=== PATIENT | female | born 1970 | race Caucasian/White ===

== ENCOUNTER 2023-01-13 19:18 | Emergency (ER) | payer BC ==
[~2023-01-13] VITALS: Ht 165.1 cm; Wt 80.0 kg
[~2023-01-13 19:18] MED LIST: NO HOME MEDS
[2023-01-13 19:37] VITALS: BP 181/59
[2023-01-13] MEDS ORDERED: proparacaine 0.5% ophthalmic drops 15ml RIGHTEYE ONE (22:15)
[2023-01-13] MEDS ORDERED: NEO/5DRO7 RIGHTEYE ×2 (22:47→23:29)
[2023-01-13] MEDS ORDERED: neomycin/polymyxn B/dexameth ophth suspension 5ml RIGHTEYE STA (23:15)
[2023-01-13] MEDS ORDERED: neomy/polymyx B/dexamethasone ophth ointment 3.5gm RIGHTEYE ONE (23:39)
== END 2023-01-14 00:09 | disposition home or self-care (01) ==
LOC: ER 19:19
DX: S05.01XA Injury of conjunctiva and corneal abrasion without foreign body, right eye, initial encounter (principal); Z90.49 Acquired absence of other specified parts of digestive tract; Z98.890 Other specified postprocedural states; Z88.1 Allergy status to other antibiotic agents; Z88.2 Allergy status to sulfonamides; Z79.899 Other long term (current) drug therapy; X58.XXXA Exposure to other specified factors, initial encounter; Y93.89 Activity, other specified; Y92.89 Other specified places as the place of occurrence of the external cause; Y99.8 Other external cause status
CPT/HCPCS: 99283

== ENCOUNTER 2023-05-24 14:18 | Emergency (ER) | payer BC ==
[~2023-05-24] VITALS: Ht 165.1 cm; Wt 90.0 kg
[~2023-05-24 14:18] MED LIST changes: +NEO/5DRO7 RIGHTEYE
[2023-05-24 17:06] LABS: BASOPHILS % (AUTO) 0.9 % (0-1); HEMATOCRIT 42.4 % (35.0-45.0); LYMPHOCYTES # (AUTO) 1.6 X10'3 (1.1-4.8); LYMPHOCYTES % (AUTO) 35.6 % (21-51); MEAN CORPUSCULAR HEMOGLOBIN 28.4 PG (27.0-31.0); MEAN CORPUSCULAR HGB CONC 32.9 g/dL (33.0-36.5); MEAN CORPUSCULAR VOLUME 86.2 FL (78-98); MEAN PLATELET VOLUME 7.3 FL (7.4-10.4); MONOCYTES # (AUTO) 0.3 X10'3 (0-0.9); MONOCYTES % (AUTO) 7.2 % (2-12); NEUTROPHILS # (AUTO) 2.4 X10'3 (1.8-7.7); NEUTROPHILS % (AUTO) 55.3 % (42-75); PLATELET COUNT 236 X10'3 (140-440); RED BLOOD COUNT 4.91 X10'6 (4.20-5.60); RED CELL DISTRIBUTION WIDTH 13.9 % (11.5-14.5); WHITE BLOOD COUNT 4.4 X10'3 (4.5-11.0)
[2023-05-24 17:11] LABS: ALANINE AMINOTRANSFERASE 18 U/L (12-78); ALBUMIN 3.9 G/DL (3.4-5.0); ALBUMIN/GLOBULIN RATIO 1.2 (1.1-1.5); ALKALINE PHOSPHATASE 69 IU/L (46-116); ANION GAP 6 (8-16); ASPARTATE AMINO TRANSFERASE 14 U/L (10-37); BILIRUBIN,TOTAL 0.4 MG/DL (0.1-1.0); BLOOD UREA NITROGEN 13 MG/DL (7-18); BUN/CREATININE RATIO 13.8 (10.0-20.0); CALCIUM 9.2 MG/DL (8.5-10.1); CHLORIDE 103 MMOL/L (99-107); CREATININE 0.94 MG/DL (0.40-0.90); GLUCOSE 102 MG/DL (70-104); LIPASE 290 U/L (73-393); POTASSIUM 3.8 MMOL/L (3.5-5.1); SODIUM 140 MMOL/L (135-145); TOTAL CARBON DIOXIDE 31.3 MMOL/L (24-32); TOTAL PROTEIN 7.1 G/DL (6.4-8.2); eGFR 63 ML/MIN
[2023-05-24] MEDS ORDERED: naproxen 500mg tablet PO ONE (17:30)
[2023-05-24 17:44] LABS: URINE HCG NEGATIVE (NEG)
[2023-05-24 17:47] LABS: CLARITY,URINE SLIGHTLY CLOUDY (Clear); COLOR,URINE STRAW (Yellow); GLUCOSE, URINE NEGATIVE (Neg); KETONES,URINE NEGATIVE (Neg); LEUKOCYTE ESTERASE ,URINE NEGATIVE (Neg); NITRITES, URINE NEGATIVE (Neg); OCCULT BLOOD,URINE LARGE (Neg); PROTEIN,URINE NEGATIVE (Neg); UROBILINOGEN,URINE 0.2 E.U/dL (0.2-1.0)
[2023-05-24 17:56] LABS: UA COLLECTION TYPE CLN CATCH MIDSTREAM
[2023-05-24 17:57] LABS: WBC,URINE 0-4 /HPF (0-4)
[2023-05-24 17:58] LABS: BACTERIA,URINE FEW /HPF (Neg)
[2023-05-24 17:59] LABS: SQUAMOUS EPITHELIAL CELL,UR FEW /LPF (FEW)
[2023-05-24 18:12] VITALS: BP 135/78
== END 2023-05-24 19:46 | disposition home or self-care (01) ==
LOC: ER 14:19
DX: N92.4 Excessive bleeding in the premenopausal period (principal); R42 Dizziness and giddiness; Z88.1 Allergy status to other antibiotic agents; Z88.2 Allergy status to sulfonamides
CPT/HCPCS: 36415; 76830; 76856; 80053; 81001; 81025; 83690; 85025; 93976; 99284